=== PATIENT | male | born 1985 | race Caucasian/White ===

== ENCOUNTER 2018-07-21 11:20 | Emergency (ER) | payer MEDICAID, OTHER ==
[~2018-07-21] VITALS: Ht 182.9 cm; Wt 65.8 kg
--- NOTE | 2018-07-21 11:43 | ED Upper Extremity ---
General Chief Complaint: Laceration Stated Complaint: RT PINKY LAC Source: patient, family, spouse Exam Limitations: no limitations History of Present Illness Date Seen by Provider: July 21, 2018 Time Seen by Provider: 11:30 Initial Comments Patient presents to ER by private conveyance with his significant other and family and chief complaint that Thursday, 3 days ago he was stabbing a knife into a table and his hand slipped down the handle lack causing a laceration to the palmar side of the intermediate phalange. He got the bleeding under control on his own but was unable to flex his finger and that has not improved in this time so he decided to come in today. He is having no fevers chills or discharge from the wound. His been cleaning it with private from peroxide daily. He is not think she's had a tetanus shot in the last 5 years. Allergies and Home Medications Allergies Coded Allergies: No Known Drug Allergies (Unverified , 07/21/18) Patient Home Medication List Home Medication List Reviewed: Yes Review of Systems Constitutional: No chills, No fever EENTM: No ear discharge, No ear pain Respiratory: No cough, No short of breath Cardiovascular: No chest pain, No edema Gastrointestinal: No abdominal pain, No constipation Past Jvssppv-[id number]-Cnzfrk Hx Patient Social History Alcohol Use: Denies Use Recreational Drug Use: No Smoking Status: Never a Smoker Physical Exam Vital Signs Capillary Refill : Height, Weight, BMI Height: '" Weight: lbs. oz. kg; BMI Method: General Appearance: WD/WN, no apparent distress Neck: full range of motion, normal inspection Cardiovascular: normal peripheral pulses, regular rate, rhythm Respiratory: no respiratory distress, no accessory muscle use Wrist: Yes normal inspection, Yes non-tender, Yes no evidence of injury, Yes normal ROM Hand: Right, ecchymosis, infection, limited ROM (extension is complete but no active flexion of the fifth digit right hand. Minor ecchymoses and swelling) Neurologic/Tendon: normal sensation, normal motor functions, tendon function deficit Neurologic/Psychiatric: alert, oriented x 3 Progress/Results/Core Measures Results/Orders My Orders Orders - YEYO RODRIGUEZ Diphtravon,Pertdiane(Acell),Tet Adult (Boostrix (07/21/18 11:45) Progress Progress Note : Time: 11:44 Progress Note We'll give him a tetanus shot. The wound is clean. We have encouraged him to just use Vaseline, soap and water and a bandage. Consults : Consulting Physician: TOPHER SOL DO Consults Notes Discussed the case and he would like to see the patient in the clinic. Departure Impression Primary Impression: Finger laceration involving tendon Qualified Codes: S61.219A - Laceration without foreign body of unspecified finger without damage to nail, initial encounter Disposition: 01 HOME, SELF-CARE Condition: Stable Departure-Patient Inst. Decision time for Depature: 11:45 Referrals: NO,LOCAL PHYSICIAN (PCP/Family) Primary Care Physician Patient Instructions: Tendon Laceration (DC), Wound Care Add. Discharge Instructions: Keep the wound clean with regular soap and water. Apply a thin layer of Vaseline under a Band-Aid and changes as often as it gets dirty or at least daily until the wound heals over. Today call Dr. Sol, orthopedic surgeon and request an appointment. Tylenol or Motrin as necessary for pain. global supply chain vice president the Bactrim and take one capsule twice a day for the next 3 days to prevent infection. All discharge instructions reviewed with patient and/or family. Voiced understanding. Scripts Sulfamethoxazole/Trimethoprim (Bactrim Ds Tablet) 1 Each Tablet 1 EACH PO BID for 3 Days, #6 TAB 0 Refills Prov: YEYO RODRIGEUZ 07/21/18 Work/School Note: Work Release Form Date Seen in the Emergency Department: July 21, 2018 Return to Work: July 22, 2018 Restrictions: No Restrictions Copy Copies To 1: TOPHER SOL TITUS J July 21, 2018 11:43
[2018-07-21] MEDS ORDERED: TETANUS,DIPTH,PERTUSS P/F (BOOSTRIX) 0.5 ML VIAL IM ONE (11:45)
[2018-07-21] MEDS ORDERED: SULF1TAB35 PO (11:47)
[2018-07-21 11:59] VITALS: BP 125/67
== END 2018-07-21 12:04 | disposition home or self-care (01) ==
LOC: ER FS 11:23
DX: S61.216A Laceration without foreign body of right little finger without damage to nail, initial encounter (principal); Z23 Encounter for immunization; W26.0XXA Contact with knife, initial encounter
CPT/HCPCS: 90471; 90715; 99284